=== PATIENT | female | born 1965 | race Caucasian/White ===

== ENCOUNTER 2017-04-18 03:18 | Emergency (ER) | payer OTHER ==
[~2017-04-18 03:18] MED LIST: DIPH25CA65 PO
[2017-04-18 03:24] VITALS: TEMP 36.8; Ht 162.6 cm
[2017-04-18 04:43] LABS: URINE APPEARANCE CLOUDY (CLEAR); URINE BILIRUBIN NEG (NEG); URINE COLOR YELLOW; URINE NITRITE NEG (NEG); URINE PH 5.5 (4.5-7.5); URINE SPECIFIC GRAVITY 1.023 (1.000-1.030); UROBILINOGEN NEG (NEG); ZZUR CULT IF INDIC CLEAN CATCH NO
[2017-04-18 04:44] LABS: MANUAL MICROSCOPIC REQUIRED? NO; REVIEW REQ? NO
[2017-04-18 04:44] LABS: BASO % 0.1 %; BASO ABS # 0.02 K/uL (0-0.2); COMPLETE YES; EOS % 0.6 %; HEMATOCRIT 43.7 % (37-47); IG% 0.3 %; LYMPH % 14.3 %; MEAN CELL VOLUME 94.4 fL (80-100); MEAN CORPUSCULAR HEMOGLOBIN 31.5 pg (25-34); MEAN CORPUSCULAR HGB CONC 33.4 g/dl (32-36); MEAN PLATELET VOLUME 9.4 fL (7.4-10.4); MONO % 5.7 %; PLATELET COUNT 304 K/uL (130-400); RED BLOOD COUNT 4.63 M/uL (4.2-5.4); WHITE BLOOD COUNT 18.92 K/uL (4.8-10.8)
[2017-04-18 04:54] LABS: PARTIAL THROMBOPLASTIN RATIO 1.1; PROTHROMBIN TIME (PATIENT) 10.6 SECONDS (9.0-12.0)
[2017-04-18 04:55] LABS: PREG INTERNAL NEGATIVE QC NEG CLEAR BACKGROUND; PREG INTERNAL POSITIVE QC POS CONTROL LINE
--- NOTE | 2017-04-18 05:08 | EMERGENCY ROOM VISIT NOTE ---
History First contact with patient: 04:40 Chief Complaint: VAGINAL BLEEDING Stated Complaint: VAGINAL BLEED History of Present Illness The patient is a 51 year old female who presents to the Emergency Room with complaints of vaginal bleeding. The patient states that she had a complete hysterectomy 9 years ago. She states she noticed some spotting yesterday. She states that today she noticed heavier vaginal bleeding. She states it soaks through her pants. The patient denies any recent sexual intercourse. She states that she was becoming intermittent with an individual who placed her finger in her vagina. She does not believe that she was scratched or a laceration occurred. She reports she has pain in the left lower abdomen. She rates her discomfort an 8/10. She denies any fevers. She denies any urinary symptoms. Review of Systems A 10 system review of systems was completed with positives and pertinent negatives listed in the HPI. Past Medical/Surgical History Medical Problems: (1) Arthritis (2) Cholecystectomy (3) Hysterectomy (4) PTSD Family History Patient reports no known family medical history. Social History Smoking Status: Current Every Day Smoker Marital Status: Occupation Status: unemployed Current/Historical Medications No Active Prescriptions or Reported Meds Physical Exam Vital Signs Date Time Temp Pulse Resp B/P (MAP) Pulse Ox O2 Delivery O2 Flow Rate FiO2 04/18/17 12:00 75 16 106/76 96 Room Air 04/18/17 11:01 119/66 04/18/17 11:00 80 22 98 04/18/17 10:45 71 10 93 04/18/17 10:43 74 04/18/17 10:30 74 17 91 04/18/17 10:15 69 13 04/18/17 10:10 76 16 97 Room Air 04/18/17 09:40 73 19 97 Room Air 04/18/17 09:10 75 19 96 Room Air 04/18/17 09:00 71 18 96 Room Air 108/70 04/18/17 08:10 86 13 100 Room Air 04/18/17 08:00 74 16 106/77 98 Room Air 04/18/17 07:35 76 20 97 Room Air 04/18/17 07:15 82 04/18/17 07:05 78 15 96 Room Air 04/18/17 07:00 87 16 127/94 99 Room Air 04/18/17 06:56 131/94 04/18/17 06:30 83 17 99 Room Air 04/18/17 06:00 84 18 139/87 100 Room Air 04/18/17 05:59 88 18 139/87 100 Room Air 04/18/17 03:27 95 04/18/17 03:24 36.8 96 18 99 Room Air Physical Exam VITALS: Vitals are noted on the nurse's note and reviewed by myself. Vital signs stable. GENERAL: This is a 51-year-old female, in no acute distress, nondiaphoretic, well-developed well-nourished. SKIN: The skin was without rashes, erythema, edema, or bruising. There is no tenting of the skin. Capillary reflex less than 2 seconds. HEAD: Normocephalic atraumatic. EARS: The external ears are normal in appearance. EYES: Pupils equal round and reactive to light and accommodation. Conjunctivae without injection, sclerae without icterus. Extraocular movements intact. NOSE: Patent, turbinates without inflammation or discharge. MOUTH: Mucous membranes moist. Tonsils are not enlarged. Pharynx without erythema or exudate. Uvula midline. Airway patent. Tongue does not deviate. NECK: Supple without nuchal rigidity. No lymphadenopathy. No thyromegaly. Cervical spine is nontender. No JVD. HEART: Regular rate and rhythm without murmurs gallops or rubs. LUNGS: Clear to auscultation bilaterally without wheezes, rales or rhonchi. No retractions or accessory muscle use. ABDOMEN: Positive bowel sounds x 4. Moderate left lower abdominal tenderness Soft, without masses or organomegaly. Partida sign negative. : The external genitalia is normal in appearance. There is moderate vaginal bleeding. Initially, the patient could not tolerate a speculum exam. After she was given pain medication, the exam was reattempted. Clots were removed with cotton swabs. There does appear to be a friable area just beneath the cuff that continues to bleed. MUSCULOSKELETAL: No muscle atrophy, erythema, or edema noted. Full range of motion in all extremities. Strength 5/5 throughout. NEURO: Patient was alert and oriented to person place and time. No focal neurological deficits. Medical Decision & Procedures ER Provider Diagnostic Interpretation: ABD/PELVIS WITHOUT FOR STONE CT DOSE: 463.41 mGy.cm HISTORY: Pain left abdominal pain TECHNIQUE: Multiaxial CT images of the abdomen and pelvis were performed without the use of intravenous and oral contrast according to the standard department stone protocol. A dose lowering technique was utilized adhering to the principles of ALA. COMPARISON STUDY: 03/23/2009 FINDINGS: Lung bases are clear liver spleen and pancreas are unremarkable. Kidneys negative for calcification or hydronephrosis. Prior cholecystectomy. Nonobstructive bowel pattern. Several scattered colonic and sigmoid diverticuli. No evidence for diverticulitis. Mild infiltrative change of the posterior medial gluteal subcutaneous fat considered to be chronic and unchanged. Trace free fluid within the pelvic cul-de-sac most likely physiologic] IMPRESSION: No acute process of the abdomen or pelvis. Prior cholecystectomy. Laboratory Results 04/18/17 04:37 Red Blood Count 4.63, Mean Corpuscular Volume 94.4, Mean Corpuscular Hemoglobin 31.5, Mean Corpuscular Hemoglobin Concent 33.4, Mean Platelet Volume 9.4, Neutrophils (%) (Auto) 79.0, Lymphocytes (%) (Auto) 14.3, Monocytes (%) (Auto) 5.7, Eosinophils (%) (Auto) 0.6, Basophils (%) (Auto) 0.1, Neutrophils # (Auto) 14.96, Lymphocytes # (Auto) 2.70, Monocytes # (Auto) 1.07, Eosinophils # (Auto) 0.11, Basophils # (Auto) 0.02 04/18/17 04:37 Test 04/18/17 04:33 04/18/17 04:37 04/18/17 07:23 Urine Color YELLOW Urine Appearance CLOUDY (CLEAR) Urine pH 5.5 (4.5-7.5) Urine Specific [place] 1.023 (1.000-1.030) Urine Protein NEG (NEG) Urine Glucose (UA) NEG (NEG) Urine Ketones NEG (NEG) Urine Occult Blood 3+ (NEG) Urine Nitrite NEG (NEG) Urine Bilirubin NEG (NEG) Urine Urobilinogen NEG (NEG) Urine Leukocyte Esterase SMALL (NEG) Urine WBC (Auto) 5-10 /hpf (0-5) Urine RBC (Auto) >30 /hpf (0-4) Urine Hyaline Casts (Auto) 1-5 /lpf (0-5) Urine Epithelial Cells (Auto) 10-20 /lpf (0-5) Urine Bacteria (Auto) NEG (NEG) Urine Test NEG (NEG) White Blood Count 18.92 K/uL (4.8-10.8) Red Blood Count 4.63 M/uL (4.2-5.4) Hemoglobin 14.6 g/dL (12.0-16.0) Hematocrit 43.7 % (37-47) Mean Corpuscular Volume 94.4 fL (80-100) Mean Corpuscular Hemoglobin 31.5 pg (25-34) Mean Corpuscular Hemoglobin Concent 33.4 g/dl (32-36) Platelet Count 304 K/uL (130-400) Mean Platelet Volume 9.4 fL (7.4-10.4) Neutrophils (%) (Auto) 79.0 % Lymphocytes (%) (Auto) 14.3 % Monocytes (%) (Auto) 5.7 % Eosinophils (%) (Auto) 0.6 % Basophils (%) (Auto) 0.1 % Neutrophils # (Auto) 14.96 K/uL (1.4-6.5) Lymphocytes # (Auto) 2.70 K/uL (1.2-3.4) Monocytes # (Auto) 1.07 K/uL (0.11-0.59) Eosinophils # (Auto) 0.11 K/uL (0-0.5) Basophils # (Auto) 0.02 K/uL (0-0.2) RDW Standard Deviation 46.7 fL (36.4-46.3) RDW Coefficient of Variation 13.5 % (11.5-14.5) Immature Granulocyte % (Auto) 0.3 % Immature Granulocyte # (Auto) 0.06 K/uL (0.00-0.02) Prothrombin Time 10.6 SECONDS (9.0-12.0) Prothromb Time International Ratio 1.0 (0.9-1.1) Activated Partial Thromboplast Time 28.9 SECONDS (21.0-31.0) Partial Thromboplastin Ratio 1.1 Anion Gap 3.0 mmol/L (3-11) Estimated GFR () 106.8 Estimated GFR (Non- 92.1 BUN/Creatinine Ratio 11.4 (10-20) Calcium Level 8.7 mg/dl (8.5-10.1) Total Bilirubin 0.3 mg/dl (0.2-1) Aspartate Amino Transf (AST/SGOT) 13 U/L (15-37) Alanine Aminotransferase (ALT/SGPT) 15 U/L (12-78) Alkaline Phosphatase 72 U/L (45-117) Total Protein 7.1 gm/dl (6.4-8.2) Albumin 3.5 gm/dl (3.4-5.0) Globulin 3.6 gm/dl (2.5-4.0) Albumin/Globulin Ratio 1.0 (0.9-2) Medications Administered Medications (Trade) Dose Ordered Sig/Tree Route Start Time Stop Time Status Last Admin Dose Admin Morphine Sulfate (MoRPHine SULFATE INJ) 6 mg NOW STAT IV 04/18/17 06:10 04/18/17 06:11 DC 04/18/17 06:10 6 MG Miscellaneous Information (Nursing Verbal Med Order) 1 ea ONE ONCE N/A 04/18/17 09:30 04/18/17 09:31 DC 04/18/17 09:34 1 EA Ferric Subsulfate (Astringyn 8GM Soln) 8 gm ONE ONCE TOP 04/18/17 09:45 04/18/17 09:46 DC 04/18/17 09:34 8 GM ED Course The patient was seen and examined. Previous visits were reviewed. The patient does not have a fever. She does have a leukocytosis of 18.9 to. She does not have any significant electrolyte abnormality. INR was 1.0. Urinalysis suggests contamination. CT scan of the abdomen and pelvis does not reveal any acute abnormality. Pelvic exam was performed once the patient had been given 4 mg IV morphine. There appears to be an area of bleeding that is very friable and thin. This is just beneath the vaginal cuff at approximately 3:00. The patient was hemodynamically stable but had persistent moderate bleeding. I discussed the case with Dr. Vásquez will evaluate the patient in the emergency department. She packed the vagina. She recommended monitoring the patient for [address] Veras would reevaluate and determine disposition. At the time of sign out, we were waiting reevaluation by [employer]. The case was signed out to Filipe Levy PA-C. Please see his dictation for disposition. The patient was also seen and examined by who agrees with the assessment and treatment plan. Medical Decision DIFFERENTIAL DIAGNOSIS: Pelvic inflammatory disease, urinary tract infection, ruptured ovarian cyst, tubo-ovarian abscess, Hepatitis, cholecystitis, cholangitis, biliary colic, pancreatitis, pneumonia, subdiaphragmatic abscess, appendicitis, inguinal hernia, nephrolithiasis, inflammatory bowel disease, mesenteric adenitis, peptic ulcer disease, GERD, gastritis, pancreatitis, myocardial infarction, pericarditis, ruptured aortic aneurysm, appendicitis, gastroenteritis, bowel obstruction, splenic infarct, diverticulitis, mesenteric ischemia, metabolic, peritonitis, among others. Blood Pressure Screening Patient's blood pressure: Normal blood pressure Blood pressure disposition: Did not require urgent referral Impression Primary Impression: Abnormal vaginal bleeding Departure Information Prescriptions No Active Prescriptions or Reported Meds Referrals No Doctor, Assigned (PCP) Patient Instructions My [facility] [employer]
[2017-04-18 05:14] LABS: ALT/SGPT 15 U/L (12-78); BLOOD UREA NITROGEN 9 mg/dl (7-18); BUN/CREATININE RATIO 11.4 (10-20); CALCIUM 8.7 mg/dl (8.5-10.1); CARBON DIOXIDE 30 mmol/L (21-32); CHLORIDE 107 mmol/L (98-107); CREATININE 0.76 mg/dl (0.60-1.20); GLUCOSE 84 mg/dl (70-99); POTASSIUM 3.3 mmol/L (3.5-5.1); SODIUM 140 mmol/L (136-145)
[2017-04-18 05:17] LABS: ALKALINE PHOSPHATASE 72 U/L (45-117); AST/SGOT 13 U/L (15-37)
[2017-04-18] MEDS ORDERED: MoRPHine SULFATE 10 MG/ML CARP/VIAL IV STA (06:10)
--- NOTE | 2017-04-18 06:38 | DIAGNOSTIC IMAGING REPORT ---
ABD/PELVIS WITHOUT FOR STONE CT DOSE: 463.41 mGy.cm HISTORY: Pain left abdominal pain TECHNIQUE: Multiaxial CT images of the abdomen and pelvis were performed without the use of intravenous and oral contrast according to the standard department stone protocol. A dose lowering technique was utilized adhering to the principles of ALARA. COMPARISON STUDY: 03/23/2009 FINDINGS: Lung bases are clear liver spleen and pancreas are unremarkable. Kidneys negative for calcification or hydronephrosis. Prior cholecystectomy. Nonobstructive bowel pattern. Several scattered colonic and sigmoid diverticuli. No evidence for diverticulitis. Mild infiltrative change of the posterior medial gluteal subcutaneous fat considered to be chronic and unchanged. Trace free fluid within the pelvic cul-de-sac most likely physiologic] IMPRESSION: No acute process of the abdomen or pelvis. Prior cholecystectomy. The above report was generated using voice recognition software. It may contain grammatical, syntax or spelling errors. Electronically signed by: Nicholas Calvo M.D. 04/18/2017 6:37 AM Dictated Date/Time: 04/18/2017 6:34 AM
--- NOTE | 2017-04-18 07:02 | EMERGENCY ROOM VISIT NOTE ---
ED Visit Note First contact with patient: 04:40 Patient seen with the physician assistant professor of religion, a repeat vaginal exam was performed by the physician assistant professor of religion with my assistance we cleared clots from the vaginal vault and the vaginal cuff appears to be actively bleeding in the 3 o'clock position we our concern for vaginal trauma he physician has spoken with with OB/ [employer], and they will evaluate the patient as well Problem List Medical Problems: (1) Arthritis Status: Chronic (2) Cholecystectomy Status: Resolved (3) Hysterectomy Status: Resolved (4) PTSD Status: Chronic Current/Historical Medications No Active Prescriptions or Reported Meds Allergies Coded Allergies: No Known Allergies (Verified , 04/18/17) Vital Signs Date Time Temp Pulse Resp B/P (MAP) Pulse Ox O2 Delivery O2 Flow Rate FiO2 04/18/17 05:59 88 18 139/87 100 Room Air 04/18/17 03:27 95 04/18/17 03:24 36.8 96 18 99 Room Air Laboratory Results 04/18/17 04:37 Red Blood Count 4.63, Mean Corpuscular Volume 94.4, Mean Corpuscular Hemoglobin 31.5, Mean Corpuscular Hemoglobin Concent 33.4, Mean Platelet Volume 9.4, Neutrophils (%) (Auto) 79.0, Lymphocytes (%) (Auto) 14.3, Monocytes (%) (Auto) 5.7, Eosinophils (%) (Auto) 0.6, Basophils (%) (Auto) 0.1, Neutrophils # (Auto) 14.96, Lymphocytes # (Auto) 2.70, Monocytes # (Auto) 1.07, Eosinophils # (Auto) 0.11, Basophils # (Auto) 0.02 04/18/17 04:37 Test 04/18/17 04:33 04/18/17 04:37 Urine Color YELLOW Urine Appearance CLOUDY (CLEAR) Urine pH 5.5 (4.5-7.5) Urine Specific [place] 1.023 (1.000-1.030) Urine Protein NEG (NEG) Urine Glucose (UA) NEG (NEG) Urine Ketones NEG (NEG) Urine Occult Blood 3+ (NEG) Urine Nitrite NEG (NEG) Urine Bilirubin NEG (NEG) Urine Urobilinogen NEG (NEG) Urine Leukocyte Esterase SMALL (NEG) Urine WBC (Auto) 5-10 /hpf (0-5) Urine RBC (Auto) >30 /hpf (0-4) Urine Hyaline Casts (Auto) 1-5 /lpf (0-5) Urine Epithelial Cells (Auto) 10-20 /lpf (0-5) Urine Bacteria (Auto) NEG (NEG) Urine Test NEG (NEG) White Blood Count 18.92 K/uL (4.8-10.8) Red Blood Count 4.63 M/uL (4.2-5.4) Hemoglobin 14.6 g/dL (12.0-16.0) Hematocrit 43.7 % (37-47) Mean Corpuscular Volume 94.4 fL (80-100) Mean Corpuscular Hemoglobin 31.5 pg (25-34) Mean Corpuscular Hemoglobin Concent 33.4 g/dl (32-36) Platelet Count 304 K/uL (130-400) Mean Platelet Volume 9.4 fL (7.4-10.4) Neutrophils (%) (Auto) 79.0 % Lymphocytes (%) (Auto) 14.3 % Monocytes (%) (Auto) 5.7 % Eosinophils (%) (Auto) 0.6 % Basophils (%) (Auto) 0.1 % Neutrophils # (Auto) 14.96 K/uL (1.4-6.5) Lymphocytes # (Auto) 2.70 K/uL (1.2-3.4) Monocytes # (Auto) 1.07 K/uL (0.11-0.59) Eosinophils # (Auto) 0.11 K/uL (0-0.5) Basophils # (Auto) 0.02 K/uL (0-0.2) RDW Standard Deviation 46.7 fL (36.4-46.3) RDW Coefficient of Variation 13.5 % (11.5-14.5) Immature Granulocyte % (Auto) 0.3 % Immature Granulocyte # (Auto) 0.06 K/uL (0.00-0.02) Prothrombin Time 10.6 SECONDS (9.0-12.0) Prothromb Time International Ratio 1.0 (0.9-1.1) Activated Partial Thromboplast Time 28.9 SECONDS (21.0-31.0) Partial Thromboplastin Ratio 1.1 Anion Gap 3.0 mmol/L (3-11) Estimated GFR () 106.8 Estimated GFR (Non- 92.1 BUN/Creatinine Ratio 11.4 (10-20) Calcium Level 8.7 mg/dl (8.5-10.1) Total Bilirubin 0.3 mg/dl (0.2-1) Aspartate Amino Transf (AST/SGOT) 13 U/L (15-37) Alanine Aminotransferase (ALT/SGPT) 15 U/L (12-78) Alkaline Phosphatase 72 U/L (45-117) Total Protein 7.1 gm/dl (6.4-8.2) Albumin 3.5 gm/dl (3.4-5.0) Globulin 3.6 gm/dl (2.5-4.0) Albumin/Globulin Ratio 1.0 (0.9-2) Medications Administered Medications (Trade) Dose Ordered Sig/Tree Route Start Time Stop Time Status Last Admin Dose Admin Morphine Sulfate (MoRPHine SULFATE INJ) 6 mg NOW STAT IV 04/18/17 06:10 04/18/17 06:11 DC 04/18/17 06:10 6 MG Departure Information Prescriptions No Active Prescriptions or Reported Meds Referrals No Doctor, Assigned (PCP) Patient Instructions My [facility]
--- NOTE | 2017-04-18 08:49 | GYNECOLOGICAL CONSULTATION ---
DATE OF CONSULTATION: 04/18/2017 DATE OF CONSULTATION: 04/18/2017 REASON FOR CONSULT: Vaginal bleeding. HISTORY OF PRESENT ILLNESS: The patient is a 51-year-old 2, para 2-0-0-2, white female status post total abdominal hysterectomy and bilateral salpingo-oophorectomy approximately 9 years ago for reasons unknown. The patient had been complaining of some vaginal spotting off and on over the last several months. She then began to have spontaneous heavier vaginal bleeding with pain the night before arriving in the Emergency Room. She denies any recent trauma. No recent penetration, no unusual discharge otherwise. She has chronic constipation and straining with bowel movements, although this did not start after an episode of straining. She has not been to a doctor in many years. Again, she does not know why she had her hysterectomy but she is certain that is not because of cancer. She does believe that she had her hysterectomy done at [facility] but this she is also not sure of. She has not been sexually active for several years and she may have scratched it with fingernail but she is not sure. No fever, chills. No difficulties with urination. She had 2 vaginal deliveries without difficulty or any complications. Hysterectomy was done for unknown reasons, but she did have ovarian cysts in the past and she thinks this may have been one of the reasons why it was done. She has never been on hormone therapy, although her ovaries had both been removed. On speculum exam, there is a moderate amount of clot in the vaginal vault. The appearance of the vaginal vault is atrophic as is the introitus. After removing the clot an area of granulation tissue could be seen at the top of the vagina. Because of the patient's discomfort it was difficult to assess this more thoroughly. Cultures were done for GC, chlamydia and general vaginal culture. The tissue otherwise did not appear to be irritated or erythematous except for this area that appeared to be reddened and slightly raised. A vaginal packing lubricated with Vaseline was placed against the vaginal cuff as the speculum was removed. The patient tolerated that procedure relatively well. ASSESSMENT: Vaginal bleeding, status post HARI-BSO of unknown origin, possible granulation tissue that is bleeding, certainly vaginal dysplasia or other dysplastic processes cannot be ruled out at this time. A adequate exam could not be done in the Emergency Room but with vaginal packing we will see if this will stop the bleeding so she can assessed at a further date. Hemoglobin was 14.9 in the Emergency Room. Therefore, she is hemodynamically stable. We will reassess after the packing has been in for at least 2 hours.
[2017-04-18] MEDS ORDERED: SILVER NITR/POTASSIUM NITRATE 10 APPLICATOR PACK ONE (09:18)
[2017-04-18] MEDS ORDERED: NURSING VERBAL MED ORDER ONE (09:30)
[2017-04-18] MEDS ORDERED: FERRIC SUBSULFATE 8 GM VIAL TOP ONE (09:45)
--- NOTE | 2017-04-18 11:42 | Progress Note ---
Progress Note Date of Service Apr 18, 2017. Progress Note OBGYN Progress Note Patient seen/reexamined. Vaginal packing gently removed, some blood on packing, not saturated. Speculum (pediatric) gently inserted, minimal dark blood in vault. In further discussion with patient, she did not have intercourse last night, but had penetration by her partner's finger. I suspect this was part of the cause of her bleeding. Discussed with patient that she will need to followup with [facility] in the office for further eval/management. She is to call/return to ER if she develops heavy bleeding >1pad per hour.
[2017-04-18 12:00] VITALS: BP 106/76; PULSE 75; O2SAT 96
--- NOTE | 2017-04-18 16:34 | EMERGENCY ROOM VISIT NOTE ---
ED Visit Note First contact with patient: 08:59 Patient was signed out to me by Tejas CRUZ. Please see her dictation for full history and physical. Patient was evaluated twice in the ED by [employer] services. She'll exam was for her packing placement. Second exam was after packing removal. There was no significant bleeding after packing removal. Patient was felt to be stable for discharge. She is to return to the ED for any sudden increase in bleeding or if she is going through more than 1 pad per hour. Follow-up with her [employer] early this week for reexamination and possible further imaging. Problem List Medical Problems: (1) Arthritis Status: Chronic (2) Cholecystectomy Status: Resolved (3) Hysterectomy Status: Resolved (4) PTSD Status: Chronic Current/Historical Medications No Active Prescriptions or Reported Meds Allergies Coded Allergies: No Known Allergies (Verified , 04/18/17) Vital Signs Date Time Temp Pulse Resp B/P (MAP) Pulse Ox O2 Delivery O2 Flow Rate FiO2 04/18/17 12:00 75 16 106/76 96 Room Air 04/18/17 11:01 119/66 04/18/17 11:00 80 22 98 04/18/17 10:45 71 10 93 04/18/17 10:43 74 04/18/17 10:30 74 17 91 04/18/17 10:15 69 13 04/18/17 10:10 76 16 97 Room Air 04/18/17 09:40 73 19 97 Room Air 04/18/17 09:10 75 19 96 Room Air 04/18/17 09:00 71 18 96 Room Air 108/70 04/18/17 08:10 86 13 100 Room Air 04/18/17 08:00 74 16 106/77 98 Room Air 04/18/17 07:35 76 20 97 Room Air 04/18/17 07:15 82 04/18/17 07:05 78 15 96 Room Air 04/18/17 07:00 87 16 127/94 99 Room Air 04/18/17 06:56 131/94 04/18/17 06:30 83 17 99 Room Air 04/18/17 06:00 84 18 139/87 100 Room Air 04/18/17 05:59 88 18 139/87 100 Room Air 04/18/17 03:27 95 04/18/17 03:24 36.8 96 18 99 Room Air Laboratory Results 04/18/17 04:37 Red Blood Count 4.63, Mean Corpuscular Volume 94.4, Mean Corpuscular Hemoglobin 31.5, Mean Corpuscular Hemoglobin Concent 33.4, Mean Platelet Volume 9.4, Neutrophils (%) (Auto) 79.0, Lymphocytes (%) (Auto) 14.3, Monocytes (%) (Auto) 5.7, Eosinophils (%) (Auto) 0.6, Basophils (%) (Auto) 0.1, Neutrophils # (Auto) 14.96, Lymphocytes # (Auto) 2.70, Monocytes # (Auto) 1.07, Eosinophils # (Auto) 0.11, Basophils # (Auto) 0.02 04/18/17 04:37 Test 04/18/17 04:33 04/18/17 04:37 04/18/17 07:23 Urine Color YELLOW Urine Appearance CLOUDY (CLEAR) Urine pH 5.5 (4.5-7.5) Urine Specific [place] 1.023 (1.000-1.030) Urine Protein NEG (NEG) Urine Glucose (UA) NEG (NEG) Urine Ketones NEG (NEG) Urine Occult Blood 3+ (NEG) Urine Nitrite NEG (NEG) Urine Bilirubin NEG (NEG) Urine Urobilinogen NEG (NEG) Urine Leukocyte Esterase SMALL (NEG) Urine WBC (Auto) 5-10 /hpf (0-5) Urine RBC (Auto) >30 /hpf (0-4) Urine Hyaline Casts (Auto) 1-5 /lpf (0-5) Urine Epithelial Cells (Auto) 10-20 /lpf (0-5) Urine Bacteria (Auto) NEG (NEG) Urine Test NEG (NEG) White Blood Count 18.92 K/uL (4.8-10.8) Red Blood Count 4.63 M/uL (4.2-5.4) Hemoglobin 14.6 g/dL (12.0-16.0) Hematocrit 43.7 % (37-47) Mean Corpuscular Volume 94.4 fL (80-100) Mean Corpuscular Hemoglobin 31.5 pg (25-34) Mean Corpuscular Hemoglobin Concent 33.4 g/dl (32-36) Platelet Count 304 K/uL (130-400) Mean Platelet Volume 9.4 fL (7.4-10.4) Neutrophils (%) (Auto) 79.0 % Lymphocytes (%) (Auto) 14.3 % Monocytes (%) (Auto) 5.7 % Eosinophils (%) (Auto) 0.6 % Basophils (%) (Auto) 0.1 % Neutrophils # (Auto) 14.96 K/uL (1.4-6.5) Lymphocytes # (Auto) 2.70 K/uL (1.2-3.4) Monocytes # (Auto) 1.07 K/uL (0.11-0.59) Eosinophils # (Auto) 0.11 K/uL (0-0.5) Basophils # (Auto) 0.02 K/uL (0-0.2) RDW Standard Deviation 46.7 fL (36.4-46.3) RDW Coefficient of Variation 13.5 % (11.5-14.5) Immature Granulocyte % (Auto) 0.3 % Immature Granulocyte # (Auto) 0.06 K/uL (0.00-0.02) Prothrombin Time 10.6 SECONDS (9.0-12.0) Prothromb Time International Ratio 1.0 (0.9-1.1) Activated Partial Thromboplast Time 28.9 SECONDS (21.0-31.0) Partial Thromboplastin Ratio 1.1 Anion Gap 3.0 mmol/L (3-11) Estimated GFR () 106.8 Estimated GFR (Non- 92.1 BUN/Creatinine Ratio 11.4 (10-20) Calcium Level 8.7 mg/dl (8.5-10.1) Total Bilirubin 0.3 mg/dl (0.2-1) Aspartate Amino Transf (AST/SGOT) 13 U/L (15-37) Alanine Aminotransferase (ALT/SGPT) 15 U/L (12-78) Alkaline Phosphatase 72 U/L (45-117) Total Protein 7.1 gm/dl (6.4-8.2) Albumin 3.5 gm/dl (3.4-5.0) Globulin 3.6 gm/dl (2.5-4.0) Albumin/Globulin Ratio 1.0 (0.9-2) Medications Administered Medications (Trade) Dose Ordered Sig/Tree Route Start Time Stop Time Status Last Admin Dose Admin Morphine Sulfate (MoRPHine SULFATE INJ) 6 mg NOW STAT IV 04/18/17 06:10 04/18/17 06:11 DC 04/18/17 06:10 6 MG Miscellaneous Information (Nursing Verbal Med Order) 1 ea ONE ONCE N/A 04/18/17 09:30 04/18/17 09:31 DC 04/18/17 09:34 1 EA Ferric Subsulfate (Astringyn 8GM Soln) 8 gm ONE ONCE TOP 04/18/17 09:45 04/18/17 09:46 DC 04/18/17 09:34 8 GM Departure Information Dispostion Home / Self-Care Condition GOOD Prescriptions No Active Prescriptions or Reported Meds Referrals Gayathri Espinoza M.D. Forms WORK / SCHOOL INSTRUCTIONS, HOME CARE DOCUMENTATION FORM, IMPORTANT VISIT INFORMATION Patient Instructions My [facility] Additional Instructions Return to the ED if the bleeding increases and your using more than 1 pad per hour Call your [facility] [facility] [facility] physician for follow-up this week
[2017-04-20 08:05] LABS: CHLAMYDIA TRACH RNA*** NOT DETECTED (NOT DETECTED); GC (NEIS GONORRHOEAE)RNA** NOT DETECTED (NOT DETECTED)
== END 2017-04-18 12:15 | disposition home or self-care (01) ==
LOC: EDBD 03:18 → C.EDB 03:19
DX: N93.9 Abnormal uterine and vaginal bleeding, unspecified (principal); M19.90 Unspecified osteoarthritis, unspecified site; Z90.710 Acquired absence of both cervix and uterus; F43.10 Post-traumatic stress disorder, unspecified; F17.210 Nicotine dependence, cigarettes, uncomplicated